=== PATIENT | female | born 1995 | race Caucasian/White ===

== ENCOUNTER 2016-09-26 03:14 | Emergency (ER) | payer SELFPAY | END 2016-09-26 04:05 | disposition left against medical advice (07) | LOC: ER 03:14 | DX: O20.9 Hemorrhage in early pregnancy, unspecified (principal); O99.331 Smoking (tobacco) complicating pregnancy, first trimester; F17.210 Nicotine dependence, cigarettes, uncomplicated; Z3A.12 12 weeks gestation of pregnancy ==